=== PATIENT | female | born 1935 | race African-American/Black ===

== ENCOUNTER 2017-06-13 14:00 | Outpatient (RCR) | payer OTHER | END 2017-06-25 | disposition home or self-care (01) | LOC: PTY 14:00 | DX: M51.36 Other intervertebral disc degeneration, lumbar region (principal); M48.061 Spinal stenosis, lumbar region without neurogenic claudication | CPT/HCPCS: 97110; 97162; G0283 ==

== ENCOUNTER 2017-07-16 08:00 | Outpatient (RCR) | payer OTHER | END 2017-07-23 | disposition home or self-care (01) | LOC: PTY 08:00 | DX: M25.551 Pain in right hip (principal) | CPT/HCPCS: 97035; 97110; 97161; G0283 ==

== ENCOUNTER 2017-07-29 09:10 | Outpatient (RCR) | payer OTHER | END 2017-08-23 | disposition home or self-care (01) | LOC: PTY 09:10 | DX: M25.551 Pain in right hip (principal) ==

== ENCOUNTER 2017-09-23 12:25 | Outpatient (RCR) | payer OTHER | END 2017-10-23 | disposition home or self-care (01) | LOC: PTY 12:25 | DX: M25.551 Pain in right hip (principal) | CPT/HCPCS: 97035; 97110; G0283 ==